=== PATIENT | male | born 1960 | race Caucasian/White ===

== ENCOUNTER 2017-12-04 06:54 | Day surgery (SDC) | payer MEDICARE, MEDICAID ==
[2017-11-25 16:38] LABS: BASOPHILS % (AUTO) 0.4 % (0-1); EOSINOPHILS # (AUTO) 0.2 X10'3 (0-0.9); EOSINOPHILS % (AUTO) 2.7 % (0-6); LYMPHOCYTES % (AUTO) 23.7 % (21-51); MEAN CORPUSCULAR HEMOGLOBIN 31.1 PG (27.0-31.0); MEAN CORPUSCULAR HGB CONC 34.2 % (33.0-36.5); MEAN PLATELET VOLUME 9.3 FL (7.4-10.4); MONOCYTES # (AUTO) 0.5 X10'3 (0-0.9); MONOCYTES % (AUTO) 6.3 % (2-12); NEUTROPHILS # (AUTO) 5.7 X10'3 (1.8-7.7); NEUTROPHILS % (AUTO) 66.9 % (42-75); PRE OP HEMATOCRIT 36.3 % (42.0-52.0); PRE OP HEMOGLOBIN 12.4 g/dL (14.0-17.9); PRE OP PLATELET COUNT 275 X10'3 (140-440); RED BLOOD COUNT 3.99 X10'6 (4.70-6.10); RED CELL DISTRIBUTION WIDTH 12.9 % (11.5-14.5)
[2017-11-25 16:54] LABS: ALBUMIN/GLOBULIN RATIO 1.3 (1.1-1.5); ALKALINE PHOSPHATASE 92 IU/L (46-116); BLOOD UREA NITROGEN 10 MG/DL (7-18); BUN/CREATININE RATIO 10.9 (5.4-32.0); CALCIUM 8.7 MG/DL (8.5-10.1); CHLORIDE 102 MMOL/L (99-107); CREATININE 0.92 MG/DL (0.60-1.10); PRE OP ALT 19 U/L (30-65); PRE OP ANION GAP 12 (8-16); PRE OP AST 14 U/L (10-37); PRE OP BILIRUB, TOTAL 0.3 MG/DL (0.0-1.0); PRE OP GLUCOSE 89 MG/DL (70-104); PRE OP POTASSIUM 4.1 MMOL/L (3.4-5.1); PRE OP SODIUM 140 MMOL/L (135-145); TOTAL CARBON DIOXIDE 26.5 MMOL/L (24-32); TOTAL PROTEIN 7.1 G/DL (6.4-8.2); eGFR 85 ML/MIN
[2017-12-04] VITALS (7 sets, daily range): BP systolic 122–138; BP diastolic 65–87
[~2017-12-04] VITALS: Ht 177.8 cm; Wt 88.2 kg
[~2017-12-04 06:54] MED LIST: ALBU8.5H8 INH; BACL10TA2 PO; FENO67CA PO; FINA5TAB11 PO; LEVO88TA7 PO; LOVA20TA2 PO; ONDA4TAB12 PO; TAMS0.4C32 PO; TEST75GE TOP; albuterol 2.5 MG/3 ML nebule NEB ONE; clindamycin 600mg/D5W 50ml 50 ML IV ONE; famotidine 20mg tablet PO ONE; ringers solution, lacted 1,000 ML IV SCH
[2017-12-04] MEDS ORDERED: LIDOcaine 0.5% (5mg/ml) 50ml vial ONE (07:16)
[2017-12-04] MEDS ORDERED: ringers solution, lacted 1,000 ML IV SCH (07:31)
[2017-12-04] MEDS ORDERED: labetalol 20mg/4ml (5mg/ml) syringe IV PRN (07:35)
[2017-12-04] MEDS ORDERED: hydrALAZINE 20mg/ml inj. IV PRN (07:35)
[2017-12-04] MEDS ORDERED: ondansetron/PF 4mg/2ml inj IV PRN (07:35)
[2017-12-04] MEDS ORDERED: morphine 4 MG/ML inj SYRINge IV PRN ×2 (07:35)
[2017-12-04] MEDS ORDERED: fentaNYL/PF 50MCG/1 ML 2ML syringe IV PRN ×2 (07:35)
[2017-12-04] MEDS ORDERED: BUPIVAcaine/PF 2.5mg/ml (0.25%) 10ml vial ONE (08:53)
[2017-12-04] MEDS ORDERED: fentaNYL/PF 50MCG/1 ML 2ML syringe ONE (09:21)
[2017-12-04] MEDS ORDERED: MIDAZolam 5mg/5ml vial ONE (09:21)
[2017-12-04] MEDS ORDERED: propofol inj 20 ML IV ONE ×2 (09:58→10:06)
[2017-12-04] MEDS ORDERED: BUPIVAcaine 2.5mg/ml inj 50ml vial (contains preservative) IJ ONE ×2 (10:15)
== END 2017-12-04 11:10 | disposition home or self-care (01) ==
LOC: PAS 06:54
PROVIDERS: ATTEND Orthopaedic Surgery Hand Surgery
DX: G56.01 Carpal tunnel syndrome, right upper limb (principal); G56.21 Lesion of ulnar nerve, right upper limb; M65.321 Trigger finger, right index finger; M65.331 Trigger finger, right middle finger; M65.341 Trigger finger, right ring finger; E03.9 Hypothyroidism, unspecified; Z87.11 Personal history of peptic ulcer disease; Z85.810 Personal history of malignant neoplasm of tongue; N40.0 Benign prostatic hyperplasia without lower urinary tract symptoms; Z88.0 Allergy status to penicillin; Z88.6 Allergy status to analgesic agent; Z98.890 Other specified postprocedural states
CPT/HCPCS: 26055; 29848; 36415; 64718; 80053; 85025; 93005; A6222; A6449; J2001; J2250; J2704; J3010; J3490; A7000; J7120

== ENCOUNTER 2018-04-22 23:23 | Emergency (ER) | payer MEDICARE, MEDICAID ==
[~2018-04-22] VITALS: Ht 177.8 cm; Wt 100.0 kg
[~2018-04-22 23:23] MED LIST changes: -albuterol 2.5 MG/3 ML nebule NEB ONE; -clindamycin 600mg/D5W 50ml 50 ML IV ONE; -famotidine 20mg tablet PO ONE; -ringers solution, lacted 1,000 ML IV SCH
[2018-04-23] MEDS ORDERED: ketorolac trometh inj. 60 MG/2 ML VIAL IM ONE (00:05)
--- NOTE | 2018-04-23 00:43 | NUR ---
pt demonstrated proper use of incentive spirometer, resting quietly on gurney, xray done
[2018-04-23] MEDS ORDERED: HYDR-4353 PO (00:50)
[2018-04-23 00:58] VITALS: BP 141/82
== END 2018-04-23 01:03 | disposition home or self-care (01) ==
LOC: ER 23:24
DX: S22.31XA Fracture of one rib, right side, initial encounter for closed fracture (principal); E78.00 Pure hypercholesterolemia, unspecified; J44.9 Chronic obstructive pulmonary disease, unspecified; K21.9 Gastro-esophageal reflux disease without esophagitis; G89.29 Other chronic pain; M79.7 Fibromyalgia; Z98.890 Other specified postprocedural states; Z88.0 Allergy status to penicillin; Z88.5 Allergy status to narcotic agent; Z79.899 Other long term (current) drug therapy; W11.XXXA Fall on and from ladder, initial encounter; Y93.89 Activity, other specified; Y92.89 Other specified places as the place of occurrence of the external cause; Y99.9 Unspecified external cause status
CPT/HCPCS: 71101; 96372; 99284; J1885

== ENCOUNTER 2018-05-01 12:58 | Emergency (ER) | payer MEDICARE, MEDICAID ==
[~2018-05-01] VITALS: Ht 177.8 cm; Wt 90.9 kg
[~2018-05-01 12:58] MED LIST changes: +HYDR-4353 PO
[2018-05-01 13:14] VITALS: BP 121/78
[2018-05-01] MEDS ORDERED: ketorolac trometh inj. 60 MG/2 ML VIAL IM ONE (13:35)
== END 2018-05-01 13:57 | disposition home or self-care (01) ==
LOC: ER 12:58
DX: M54.5 Low back pain (principal); G89.29 Other chronic pain; M79.7 Fibromyalgia; E78.00 Pure hypercholesterolemia, unspecified; J44.9 Chronic obstructive pulmonary disease, unspecified; K21.9 Gastro-esophageal reflux disease without esophagitis; Z88.0 Allergy status to penicillin; Z88.5 Allergy status to narcotic agent
CPT/HCPCS: 96372; 99284; J1885

== ENCOUNTER 2018-05-21 07:16 | Day surgery (SDC) | payer MEDICARE, MEDICAID ==
[2018-05-13 12:32] LABS: BASOPHILS % (AUTO) 0.5 % (0-1); EOSINOPHILS # (AUTO) 0.2 X10'3 (0-0.9); EOSINOPHILS % (AUTO) 3.4 % (0-6); LYMPHOCYTES # (AUTO) 1.5 X10'3 (1.1-4.8); MEAN CORPUSCULAR HEMOGLOBIN 30.3 PG (27.0-31.0); MEAN PLATELET VOLUME 9.3 FL (7.4-10.4); MONOCYTES # (AUTO) 0.6 X10'3 (0-0.9); MONOCYTES % (AUTO) 8.9 % (2-12); NEUTROPHILS # (AUTO) 4.4 X10'3 (1.8-7.7); NEUTROPHILS % (AUTO) 65.2 % (42-75); PRE OP HEMOGLOBIN 12.6 g/dL (14.0-17.9); PRE OP PLATELET COUNT 300 X10'3 (140-440); RED BLOOD COUNT 4.16 X10'6 (4.70-6.10)
[2018-05-13 12:46] LABS: ALBUMIN 3.9 G/DL (3.4-5.0); ALBUMIN/GLOBULIN RATIO 1.1 (1.1-1.5); ALKALINE PHOSPHATASE 87 IU/L (46-116); BLOOD UREA NITROGEN 12 MG/DL (7-18); CALCIUM 9.1 MG/DL (8.5-10.1); CHLORIDE 105 MMOL/L (99-107); PRE OP ALT 21 U/L (30-65); PRE OP ANION GAP 11 (8-16); PRE OP AST 16 U/L (10-37); PRE OP BILIRUB, TOTAL 0.3 MG/DL (0.0-1.0); PRE OP GLUCOSE 102 MG/DL (70-104); PRE OP POTASSIUM 3.9 MMOL/L (3.4-5.1); PRE OP SODIUM 139 MMOL/L (135-145); TOTAL CARBON DIOXIDE 22.6 MMOL/L (24-32); TOTAL PROTEIN 7.3 G/DL (6.4-8.2); eGFR 77 ML/MIN
[~2018-05-21] VITALS: Ht 177.8 cm; Wt 99.5 kg
[2018-05-21 07:15] VITALS: BP 116/82
[~2018-05-21 07:16] MED LIST changes: -HYDR-4353 PO; -TEST75GE TOP; +clindamycin 600mg/D5W 50ml 50 ML IV ONE; +famotidine 20mg tablet PO ONE; +ringers solution, lacted 1,000 ML IV SCH
[2018-05-21] MEDS ORDERED: LIDOcaine 0.5% (5mg/ml) 50ml vial ONE (07:27)
[2018-05-21] MEDS ORDERED: ringers solution, lacted 1,000 ML IV SCH (07:34)
[2018-05-21] MEDS ORDERED: hydrALAZINE 20mg/ml inj. IV PRN (07:35)
[2018-05-21] MEDS ORDERED: morphine 4 MG/ML inj SYRINge IV PRN ×2 (07:35)
[2018-05-21] MEDS ORDERED: labetalol 20mg/4ml (5mg/ml) syringe IV PRN (07:35)
[2018-05-21] MEDS ORDERED: fentaNYL/PF 50MCG/1 ML 2ML syringe IV PRN (07:35)
[2018-05-21] MEDS ORDERED: ondansetron/PF 4mg/2ml inj IV PRN (07:35)
[2018-05-21] MEDS ORDERED: BUPIVAcaine/PF 2.5mg/ml (0.25%) 10ml vial ONE (09:07)
[2018-05-21] MEDS ORDERED: triamcinolone acetonide 40mg/ml inj ONE ×2 (09:07→09:08)
[2018-05-21] MEDS ORDERED: sevoflurane 250ml liquid IH ONE (09:38)
[2018-05-21] MEDS ORDERED: fentaNYL /PF 50mcg/ml 5ml ampule ONE (09:42)
[2018-05-21] MEDS ORDERED: MIDAZolam 5mg/5ml vial ONE (09:42)
[2018-05-21] MEDS ORDERED: ketorolac trometh. 30mg/ml inj. ONE (09:52)
[2018-05-21] MEDS ORDERED: propofol inj 20 ML IV ONE ×2 (09:52→10:12)
[2018-05-21] MEDS ORDERED: LIDOcaine 1%/PF 5ML 10 MG/ML VIAL ONE (09:52)
[2018-05-21 10:31] VITALS: BP 124/89
[2018-05-21 10:41] VITALS: BP 127/91
[2018-05-21] MEDS: fentaNYL/PF 50MCG/1 ML 2ML syringe IV PRN ×2 (10:41→10:53)
--- NOTE | 2018-05-21 10:43 | NUR ---
Received from OR via [facility] , accompanied by Anesthesiologist ANNI and report given by Anesthesiolgist. PATIENT WITH 20G PIV IN HAND RUNNING LR AT 100. MEDICATED UPON ARRIVAL. PATIENT WITH DRESSING TO LEFT ELBOW AND WRIST AND BANDAID TO RIGHT ANTERIOR SHOULDER. VSS Addendum: 05/21/18 at 1049 by Raymond Fountain RN, RN Amended: Links added.
[2018-05-21 10:51] VITALS: BP 137/88
[2018-05-21 11:01] VITALS: BP 136/90
[2018-05-21 11:11] VITALS: BP 128/89
--- NOTE | 2018-05-21 11:21 | NUR ---
ALL DC CRITERIA HAS BEEN MET. IV TAKEN OUT WITHOUT COMPLICATIONS. ALL INSTRUCTIONS COVERED AND ALL QUESTIONS ANSWERED. DRESSINGS CDI. OUT VIA WHEELCHAIR TO PERSONAL VEHICLE WHERE PATIENT WAS SECURED IN AND DRIVEN HOME BY FAMILY. Addendum: 05/21/18 at 1126 by Raymond Fountain RN, RN Amended: Links added.
== END 2018-05-21 11:21 | disposition home or self-care (01) ==
LOC: PAS 07:16
PROVIDERS: ATTEND Orthopaedic Surgery Hand Surgery
DX: G56.02 Carpal tunnel syndrome, left upper limb (principal); G56.22 Lesion of ulnar nerve, left upper limb; M65.312 Trigger thumb, left thumb; M75.41 Impingement syndrome of right shoulder
CPT/HCPCS: 20610; 26055; 29848; 36415; 64718; 80053; 85025; A6222; A6449; J1885; J2001; J2250; J2704; J3010; J3301; J3490; A7000; J7120

== ENCOUNTER 2018-11-15 07:22 | Day surgery (SDC) | payer MEDICARE, MEDICAID ==
[2018-11-08 15:15] LABS: BASOPHILS # (AUTO) 0.1 X10'3 (0-0.2); BASOPHILS % (AUTO) 0.6 % (0-1); EOSINOPHILS # (AUTO) 0.3 X10'3 (0-0.9); EOSINOPHILS % (AUTO) 2.8 % (0-6); LYMPHOCYTES # (AUTO) 1.6 X10'3 (1.1-4.8); LYMPHOCYTES % (AUTO) 17.9 % (21-51); MEAN CORPUSCULAR HEMOGLOBIN 30.8 PG (27.0-31.0); MEAN CORPUSCULAR HGB CONC 33.8 g/dL (33.0-36.5); MEAN CORPUSCULAR VOLUME 90.9 FL (78-98); MEAN PLATELET VOLUME 9.6 FL (7.4-10.4); MONOCYTES # (AUTO) 0.6 X10'3 (0-0.9); MONOCYTES % (AUTO) 6.7 % (2-12); NEUTROPHILS # (AUTO) 6.5 X10'3 (1.8-7.7); PRE OP HEMATOCRIT 38.5 % (42.0-52.0); PRE OP PLATELET COUNT 230 X10'3 (140-440); RED BLOOD COUNT 4.23 X10'6 (4.70-6.10); RED CELL DISTRIBUTION WIDTH 13.3 % (11.5-14.5)
[2018-11-08 15:26] LABS: ALBUMIN 4.1 G/DL (3.4-5.0); ALBUMIN/GLOBULIN RATIO 1.2 (1.1-1.5); ALKALINE PHOSPHATASE 66 IU/L (46-116); BLOOD UREA NITROGEN 20 MG/DL (7-18); BUN/CREATININE RATIO 15.9 (5.4-32.0); CALCIUM 9.1 MG/DL (8.5-10.1); CHLORIDE 105 MMOL/L (99-107); CREATININE 1.26 MG/DL (0.60-1.10); PRE OP ALT 27 U/L (30-65); PRE OP ANION GAP 6 (8-16); PRE OP AST 17 U/L (10-37); PRE OP BILIRUB, TOTAL 0.4 MG/DL (0.0-1.0); PRE OP GLUCOSE 93 MG/DL (70-104); PRE OP POTASSIUM 4.3 MMOL/L (3.4-5.1); PRE OP SODIUM 141 MMOL/L (135-145); TOTAL CARBON DIOXIDE 29.6 MMOL/L (24-32); TOTAL PROTEIN 7.4 G/DL (6.4-8.2); eGFR 59 ML/MIN
[~2018-11-15] VITALS: Ht 177.8 cm; Wt 103.9 kg
[2018-11-15] VITALS (8 sets, daily range): BP systolic 100–140; BP diastolic 67–78
[~2018-11-15 07:22] MED LIST changes: +BUPIVAcaine/PF 2.5mg/ml (0.25%) 10ml vial ONE; +MORINGA; +[UNRECOGNIZED DRUG - OTHER]; +albuterol 2.5 MG/3 ML nebule NEB ONE; +cefazolin/dext.iso 2gm/50ml 50 ML IV ONE; -clindamycin 600mg/D5W 50ml 50 ML IV ONE; -ringers solution, lacted 1,000 ML IV SCH
[2018-11-15] MEDS ORDERED: hydrALAZINE 20mg/ml inj. IV PRN (08:00)
[2018-11-15] MEDS ORDERED: morphine 4 MG/ML inj SYRINge IV PRN ×2 (08:00)
[2018-11-15] MEDS ORDERED: fentaNYL/PF 50MCG/1 ML 2ML syringe IV PRN ×2 (08:00)
[2018-11-15] MEDS ORDERED: ondansetron/PF 4mg/2ml inj IV PRN (08:00)
[2018-11-15] MEDS ORDERED: labetalol 20mg/4ml (5mg/ml) syringe IV PRN (08:00)
[2018-11-15] MEDS ORDERED: ringers solution, lacted 1,000 ML IV SCH (08:00)
[2018-11-15] MEDS ORDERED: sevoflurane 250ml liquid IH ONE (09:51)
[2018-11-15] MEDS ORDERED: fentaNYL/PF 50MCG/1 ML 2ML syringe ONE (09:56)
[2018-11-15] MEDS ORDERED: midazolam 2 mg/2 ml injection ONE (09:57)
[2018-11-15] MEDS ORDERED: propofol inj 20 ML IV ONE (10:09)
[2018-11-15] MEDS ORDERED: dexamethasone sod phosphate 4mg/ml inj. ONE (10:10)
[2018-11-15] MEDS ORDERED: ondansetron/PF 4mg/2ml inj ONE (10:10)
[2018-11-15] MEDS ORDERED: LIDOcaine 1%/PF 5ML 10 MG/ML VIAL ONE (10:10)
--- NOTE | 2018-11-15 10:27 | NUR ---
Received from OR via , accompanied by Anesthesiologist FRANCESCO and report given by Anesthesiolgist. AWAKE IN NO RESP DISTRESS SKIN WARM AND DRY HOB AND LUE ELEVATED, FINGERS WARM PINK GOOD CAP REFILL, AND MOVEMENT OF FINGERS. NO CO PAIN, THIRSTY. ICE TO FINGERS.
[2018-11-15] MEDS ORDERED: oxyCODONE/APAP 10/325mg tablet PO ONE (10:50)
--- NOTE | 2018-11-15 11:27 | NUR ---
AWAKE VS WNL PAIN DECREASED AFTER PO MED. DSG DI, FINGERS WARM PINK GOOD CAP REFILL MOVES FINGERS. TOLERATES LIQUIDS, HUNGRY, DISCH INSTR GIVEN TO PT AND UNDERSTOOD, ICE TO HAND. HOME WITH FRIEND DANG.
== END 2018-11-15 11:27 | disposition home or self-care (01) ==
LOC: PAS 07:22
PROVIDERS: ATTEND Orthopaedic Surgery Hand Surgery
DX: M65.332 Trigger finger, left middle finger (principal); M65.342 Trigger finger, left ring finger; M65.352 Trigger finger, left little finger; Z79.899 Other long term (current) drug therapy; Z88.0 Allergy status to penicillin; Z88.5 Allergy status to narcotic agent
CPT/HCPCS: 26055; 36415; 80053; 85025; 93005; 94640; 94760; J1100; J2250; J2405; J2704; J3010; J3490; A4215; A4618; J7120

== ENCOUNTER 2023-03-29 08:22 | Emergency (ER) | payer MEDICARE, MEDICAID ==
[~2023-03-29] VITALS: Ht 177.8 cm; Wt 100.0 kg
[~2023-03-29 08:22] MED LIST changes: +ALBU8.5H17 INH; -ALBU8.5H8 INH; +BUDE10.22 IH; -BUPIVAcaine/PF 2.5mg/ml (0.25%) 10ml vial ONE; +CHOL10006 PO; +CYAN100087 PO; +DIAZ-350 PO; +EZET10TA48 PO; -FENO67CA PO; +FENO67CA14 PO; +FERR325T32 PO; +HYDR2TAB28 PO; +LEVO112T5 PO; -LEVO88TA7 PO; -LOVA20TA2 PO; +MECL-302 PO; +MULT-1085 PO; +OXYC-150 PO; +SUMA25TA9 PO; +TIOT18CA3 IH; -albuterol 2.5 MG/3 ML nebule NEB ONE; -cefazolin/dext.iso 2gm/50ml 50 ML IV ONE; -famotidine 20mg tablet PO ONE
[2023-03-29 09:32] VITALS: BP 92/59; PULSE 60; TEMP 97.6; O2SAT 95
[2023-03-29] MEDS ORDERED: HYDROmorphone 2mg tablet PO PRN (10:00)
[2023-03-29 10:23] VITALS: RESP 18
== END 2023-03-29 10:55 | disposition home or self-care (01) ==
LOC: ER 08:22
DX: S22.32XA Fracture of one rib, left side, initial encounter for closed fracture (principal); S82.832A Other fracture of upper and lower end of left fibula, initial encounter for closed fracture; E78.00 Pure hypercholesterolemia, unspecified; K21.9 Gastro-esophageal reflux disease without esophagitis; E07.9 Disorder of thyroid, unspecified; J44.9 Chronic obstructive pulmonary disease, unspecified; Z88.0 Allergy status to penicillin; Z88.8 Allergy status to other drugs, medicaments and biological substances; Z79.899 Other long term (current) drug therapy; W18.39XA Other fall on same level, initial encounter; Y93.89 Activity, other specified; Y92.89 Other specified places as the place of occurrence of the external cause; Y99.8 Other external cause status
CPT/HCPCS: 29515; 71101; 73610; 99284; A6446; A6449